=== PATIENT | male | born 1965 | race Caucasian/White ===

== ENCOUNTER 2021-06-05 21:42 | Emergency (ER) | payer OTHER ==
[~2021-06-05] VITALS: Ht 172.7 cm; Wt 91.0 kg
[2021-06-05 23:39] VITALS: BP 145/82
== END 2021-06-05 23:40 ==
LOC: ER 21:42
DX: Z43.0 Encounter for attention to tracheostomy (principal); Z85.9 Personal history of malignant neoplasm, unspecified
CPT/HCPCS: 99283